=== PATIENT | female | born 1945 | race Caucasian/White ===

== ENCOUNTER → 2017-01-05 | Day surgery (SDC) | payer OTHER | END | disposition home or self-care (01) | LOC: FMAMMOTONE 09:41 | PROVIDERS: ATTEND Surgery Surgical Oncology | PROC: 0HBU3ZX Excision of Left Breast, Percutaneous Approach, Diagnostic (ICD-10-PCS; principal; 2017-01-05) | DX: R92.1 Mammographic calcification found on diagnostic imaging of breast (principal); Z85.3 Personal history of malignant neoplasm of breast; Z53.8 Procedure and treatment not carried out for other reasons | CPT/HCPCS: 19081 ==

== ENCOUNTER 2020-04-20 08:30 | Day surgery (SDC) | payer OTHER ==
[2020-04-16 14:17] VITALS: BMI 20.9
--- OUTSIDE RECORDS SUMMARY | 2020-04-16 18:17 | XMS ---
:1945 [facility] Providers Name Role Phone Donn Uriostegui Unavailable Unavailable Moody Donn Unavailable Unavailable Moody Donn Unavailable Unavailable Moody Donn Unavailable Unavailable Moody, Donn Unavailable Unavailable Moody, Donn Unavailable Unavailable Moody, Donn Unavailable Unavailable Moody, Donn Unavailable Unavailable Moody Donn Unavailable Unavailable Moody Donn Unavailable Unavailable Moody, Donn Unavailable Unavailable Moody, Donn Unavailable Unavailable Moody, Donn Unavailable Unavailable Moody, Donn Unavailable Unavailable Koyfman DO Unavailable Koyfman DO Unavailable Koyfman DO Unavailable Koyfman DO Unavailable Koyfman DO Unavailable Koyfman DO Unavailable Koyfman DO Unavailable Koyfman DO Unavailable Koyfman DO Unavailable Koyfman DO Unavailable Koyfman DO Unavailable Koyfman DO Unavailable Koyfman DO Unavailable Koyfman DO Unavailable KOYFMAN Unavailable Unavailable Bezdicek, MD Unavailable Unavailable Bezdicek, MD Unavailable Unavailable Bezdicek, MD Unavailable Unavailable Bezdicek, MD Unavailable Unavailable Bezdicek, MD Unavailable Unavailable Bezdicek, MD Unavailable Unavailable Bezdicek, MD Unavailable Unavailable Bezdicek, MD Unavailable Unavailable Bezdicek, MD Unavailable Unavailable Bezdicek, MD Unavailable Unavailable Bezdicek, MD Unavailable Unavailable Bezdicek, MD Unavailable Unavailable Bezdicek, MD Unavailable Unavailable Bezdicek, MD Unavailable Unavailable Bezdicek, MD Unavailable Unavailable Bezdicek, MD Unavailable Unavailable Bezdicek, MD Unavailable Unavailable Bezdicek, MD Unavailable Unavailable Bezdicek, MD Unavailable Unavailable Bezdicek, MD Unavailable Unavailable Bezdicek, MD Unavailable Unavailable Re-disclosure Warning The records that you are about to access may contain information from federally- assisted alcohol or drug abuse programs. If such information is present, then the following federally mandated warning applies: This information has been disclosed to you from records protected by federal confidentiality rules (42 CFR part 2). The federal rules prohibit you from making any further disclosure of this information unless further disclosure is expressly permitted by the written consent of the person to whom it pertains or as otherwise permitted by 42 CFR part 2. A general authorization for the release of medical or other information is NOT sufficient for this purpose. The Federal rules restrict any use of the information to criminally investigate or prosecute any alcohol or drug abuse patient.The records that you are about to access may contain highly sensitive health information, the redisclosure of which is protected by Article 27-F of the [facility] Public Health law. If you continue you may haveaccess to information: Regarding HIV / AIDS; Provided by facilities licensed or operated by the [facility] Office of Mental Health; or Provided by the [facility] Office for People With Developmental Disabilities. If such information is present, then the following [facility] mandated warning applies: This information has been disclosed to you from confidential records which are protected by state law. State law prohibits you from making any further disclosure of this information without the specific written consent of the person to whom it pertains, or as otherwise permitted by law. Any unauthorized further disclosure in violation of state law may result in a fine or mcfp sentence or both. A general authorization for the release of medical or other information is NOT sufficient authorization for further disclosure. Allergies and Adverse Reactions Type Description Substance Reaction Status Data Source(s ) NO KNOWN ALLERGIES NO KNOWN ALLERGIES [facility] ([facility] ) Drug Class NO KNOWN ALLERGIES NO KNOWN ALLERGIES [place] [facility] Drug allergy Drug allergy Drug allergy MEDENT ( [facility]) Encounters Encounter Providers Location Date Indications Data Source(s ) Outpatient 07/06/2020 03:00:00 [facility] [place] [facility] 07/06/2020 12:45:00 [facility] [place] [facility] Outpatient 04/27/2020 01:00:00 [facility] [place] [facility] Outpatient 04/09/2020 09:39:25 [facility] [place] AM [facility] Outpatient 04/02/2020 11:30:00 [facility] [place] AM EDT - 04/02/2020 [facility] 02:47:21 PM EDT Patient discharged. Outpatient 03/23/2020 07:15:00 AM NE X[facility]EN ([facility]) Outpatient 03/22/2020 07:33:00 AM NE XTGEN ([facility]) Outpatient Attender: Jaguar 03/10/2020 11:36:07 AM [facility] Kc MDAdmitter: EDT - 03/10/2020 [facility] Jaguar Kc MD 11:59:00 PM EDT Patient discharged. Outpatient 02/27/2020 01:30:00 PM EDT - [facility] 02/27/2020 04:10:57 PM EDT [facility] Patient discharged. Outpatient 06/26/2019 12:15:00 PM EST [facility] Out[facility] 04/11/2019 08:06:00 AM EDT NEXTGEN ([facility]) Outpatient 04/10/2019 08:24:00 AM EDT NEXTGEN ([facility]) Outpatient 03/28/2019 02:56:54 PM EDT [facility] [place] 03/28/2019 12:00:00 PM EDT - [facility] 03/28/2019 04:29:12 PM EDT [facility] Patient discharged. Outpatient 03/26/2019 01:30:00 [facility] [place] [facility] Attender: Onel 03/14/2019 03:30:54 Ne[facility] Koyfman DO PM EDT - 03/14/2019 11:59:00 PM EDT Attender: ONEL SungOUTH-XRAY 03/14/2019 11:08:10 [place] [place] AM EDT Outpatient 03/11/2019 02:15:00 [facility] [place] [facility] Outpatient Attender: [facility], 02/15/2019 11:30:00 ROXY goddard [facility] Outpatient 01/31/2019 12:42:10 [facility] PM [place] [facility] Outpatient 01/15/2019 01:45:00 [facility] PM EDT [place] [facility] Outpatient 01/15/2019 01:34:05 [facility] PM EDT - 01/15/2019 [facility] 04:39:53 PM EDT System In c Outpatient 01/15/2019 12:00:00 [facility] AM EDT [place] [facility] POB SDS-POB LAB 01/09/2019 12:32:50 [facility] PM EDT 01/09/2019 12:20:00 [employer] PM EDT - 01/09/2019 11:59:00 PM EDT Outpatient 12/21/2018 08:43:49 [facility] AM EDT [place] [facility] 07/26/2018 12:50:00 [employer] PM EST - 07/26/2018 11:59:00 PM EST Immunizations Vaccine Date Status Description Data Source(s) Influenza, high 05/29/2019 completed Influenza High 05/29/2019, [facility] dose seasonal 12:00:00 AM Dose Vaccine PF 05/22/2017, [facility] 05/05/2016 [facility] Zoster 05/21/2019 completed Zoster 05/21/2019, [facility] Recombinant 12:00:00 AM Recombinant 03/20/2019 [facility] Zoster 03/20/2019 completed Zoster 05/21/2019, [facility] Recombinant 12:00:00 AM Recombinant 03/20/2019 [facility] [employer] [facility] influenza, 05/04/2018 completed Influenza 05/04/2018 [facility] trivalent, 12:00:00 AM Vaccine (Tri) Ewa rity adjuvanted EDT Adjuvanted [facility] Influenza, high 05/22/2017 completed Influenza High 05/29/2019, [facility] dose seasonal 12:00:00 AM Dose Vaccine PF 05/22/2017, [place] EST 05/05/2016 [facility] Influenza, high 05/05/2016 completed Influenza High 05/29/2019, [facility] dose seasonal 12:00:00 AM Dose Vaccine PF 05/22/2017, [place] EDT 05/05/2016 [facility] New in 2012. 04/30/2015 completed Influenza 04/30/2015, [facility] IIV4 12:00:00 AM Vaccine (Quad) 05/13/2014 [facility] Pneumococcal 11/11/2014 completed Pneumococcal 11/11/2014 [place] [facility] conjugate PCV 13 12:00:00 AM Conjugate C harity EDT (PCV-13) [facility] New in 2012. 05/13/2014 completed Influenza 04/30/2015, [facility] IIV4 12:00:00 AM Vaccine (Quad) 05[facility]13/2014 [facility] Medications Medication Brand Start Product Dose Route Administrative Pharmacy [facility] Indications Reaction Description Data Name Date Form Instructions Instructions Source(s) Losartan losart 03/26/ 50 mg Oral active Take 1 Ta b Bon Potassium an 2019 by mouth Sec[facility] s 50 MG Oral (COZAA 12:00: daily. Ewa chaparro Tablet R) 50 00 AM Health losartan mg EDT [facility] Inc (COZAAR) 50 tablet mg tablet 60 ACTUAT Advair Inhala active Take 1 Puff [facility] Fluticasone Diskus 2019 {puff tion by Secou rs propionate 250-50 12:00: } inhalation [place] 0.25 mcg/do 00 AM two (2) Health MG/ACTUAT / se EDT times a day. [facility] salmeterol diskus 0.05 inhale MG/ACTUAT r Dry Powder Inhaler [Advair] Advair Diskus 250-50 mcg/dose diskus inhaler umeclidiniu umecli Inhala active Take 1 Puff Bon m 0.0625 dinium 2019 {puff tion by [facility] MG/ACTUAT (Incru 12:00: } inhalation [place] Dry Powder se 00 AM daily. Health Inhaler Ellipt EDT [facility] um[place]) m (Incruse 62.5 Ellipta) mcg/ac 62.5 tuatio mcg/actuati n on inhaler inhale r 30 ACTUAT flutic Inhala active Take 1 Puff [place] fluticasone asone 2019 {puff tion by Secour s furoate 0.2 furoat 12:00: } inhalatio n [place] MG/ACTUAT / e-darlin 00 AM daily. [facility] vilanterol nteroL EDT [facility] 0.025 (Breo MG/ACTUAT Ellipt Dry Powder a) Inhaler 200-25 [Breo] mcg/do fluticasone se furoate-thom inhale anteroL r (Breo Ellipta) 200-25 mcg/dose inhaler Ciprofloxac ciprof Oral active Take 1 Tab Bon in 500 MG loxaci 2020 mg by mouth two [facility] Oral Tablet n HCl 12:00: (2) times a [place] ciprofloxac (CIPRO 00 AM day. Healt h in HCl ) 500 EST [facility] Inc (CIPRO) 500 mg mg tablet tablet Metronidazo metroN Oral active Take 1 Tab Bon le 500 MG IDAZOL 2020 mg by mouth Seco urs Oral Tablet E 12:00: three (3) C harity metroNIDAZO (FLAGY 00 AM times elva y. Health LE (FLAGYL) L) 500 EST [facility] 500 mg mg tablet tablet Ondansetron ondans 09/17/ 4 mg Oral active Take 1 Tab Bon 4 MG Oral etron 2020 by mouth Secou rs Tablet hcl 12:00: every eight [place] ity ondansetron (ZOFRA 00 AM (8) hours as Health hcl N) 4 EST needed for System In c (ZOFRAN) 4 mg Nausea. mg tablet tablet Ondansetron ondans 06/26/ 4 mg Oral active Take 1 Tab Bon 4 MG Oral etron 2019 by mouth Secou rs Tablet hcl 12:00: every eight [place] ity ondansetron (ZOFRA 00 AM (8) hours as Health hcl N) 4 EST needed for System In c (ZOFRAN) 4 mg Nausea. mg tablet tablet Ciprofloxac ciprof Oral active Take 1 Tab Bon in 500 MG loxaci 2019 mg by mouth two [facility] Oral Tablet n HCl 12:00: (2) times a [place] ciprofloxac (CIPRO 00 AM day. Healt h in HCl ) 500 EST System Inc (CIPRO) 500 mg mg tablet tablet Metronidazo metroN Oral active Take 1 Tab Bon le 500 MG IDAZOL 2019 mg by mouth Seco urs Oral Tablet E 12:00: three (3) C harity metroNIDAZO (FLAGY 00 AM times elva y. Health LE (FLAGYL) L) 500 EST [facility] 500 mg mg tablet tablet Nystatin nystat Oral active Take 5 mL by Bon [id number] in 2018 0 U mouth four [facility] UNT/ML Oral (MYCOS 12:00: (4) times [place] Suspension TATIN) 00 AM daily for 1 4 Health nystatin 100,00 EST days. swish Sy [facility] Inc (MYCOSTATIN 0 and spit ) 100,000 unit/m unit/mL L suspension suspen marianne 30 ACTUAT flutic Inhala active Take 1 Puff [place] fluticasone asone 2018 {puff tion by Secour s furoate 0.2 furoat 12:00: } inhalatio n [place] MG/ACTUAT / e-darlin 00 AM [facility]. [facility] vilanterol nterol EDT [facility] 0.025 (BREO MG/ACTUAT ELLIPT Dry Powder A) Inhaler 200-25 fluticasone mcg/do furoate-thom se anterol inhale (BREO r ELLIPTA) 200-25 mcg/dose inhaler 7 ACTUAT umecli Inhala active Take 1 P uff Bon umeclidiniu dinium 2018 {puff tion by Secou rs m 0.0625 (INCRU 12:00: } inhalation C harity MG/ACTUAT SE 00 AM daily. Health Dry Powder ELLIPT EDT [facility] Inhaler A) umeclidiniu 62.5 m (INCRUSE mcg/ac ELLIPTA) tuatio 62.5 n mcg/actuati inhale on inhaler r Losartan losart 03/19/ Tablet 50.0 Oral Nuvan ce Potassium an 50 2019 mg 50 m g, Oral, Daily, # 90 tab, 3 Refill(s), Pharmacy: [facility], 50 mg Oral Daily Health - 50 MG Oral mg 03:33: [place] Tablet oral 00 PM Brothers losartan 50 tablet EDT Medica l mg oral Center tablet Prednisone Predni 02/15/ active MED ENT 50 MG Oral sone 2018 ([facility] Tablet 12:00: Walk In 00 AM Medical EDT Center) Tobramycin Tobrex 02/15/ active MED ENT 3 MG/ML 2018 ([facility] 12:00: Walk In Solution 00 AM Medical [Tobrex] EDT Center) 30 ACTUAT flutic Inhala active Take 1 Puff [place] fluticasone asone 2018 {puff tion by Secour s furoate 0.2 furoat 12:00: } inhalatio n [place] MG/ACTUAT / e-darlin 00 AM daily. Hea lt vilanterol nterol EDT [facility] 0.025 (BREO MG/ACTUAT ELLIPT Dry Powder A) Inhaler 200-25 fluticasone mcg/do furoate-thom se anterol inhale (BREO r ELLIPTA) 200-25 mcg/dose inhaler Prednisone predni 01/15/ 40 mg Oral active Take 40 mg Bon 20 MG Oral SONE 2018 by mouth Secou rs Tablet (DELTA 12:00: daily (with Ch arity predniSONE SONE) 00 AM breakfast). Health (DELTASONE) 20 mg EDT [facility] 20 mg tablet tablet 7 ACTUAT umecli Inhala active Take 1 P uff Bon umeclidiniu dinium 2018 {puff tion by Secou rs m 0.0625 (INCRU 12:00: } inhalation C harity MG/ACTUAT SE 00 AM daily. Health Dry Powder ELLIPT EDT [facility] Inhaler A) umeclidiniu 62.5 m (INCRUSE mcg/ac ELLIPTA) tuatio 62.5 n mcg/actuati inhale on inhaler r Cefuroxime cefURO 07/26/ 500 Oral aborted Take 1 Tab Bon 500 MG Oral Jordyn 2019 mg by mouth two [facility] Tablet (CEFTI 12:00: (2) times a Ch arity cefUROXime N) 500 00 AM day. Health (CEFTIN) mg EST [facility] 500 mg tablet tablet Ciprofloxac ciprof Oral aborted Take 2 Tabs Bon in 250 MG loxaci 2018 mg by mouth Seco urs Oral Tablet n HCl 12:00: every twel ve [place] ciprofloxac (CIPRO 00 AM (12) hours . Health in HCl ) 250 EDT [facility] Inc (CIPRO) 250 mg mg tablet tablet Ondansetron ondans 05/04/ 4 mg Oral aborted Take 1 Tab Bon 4 MG Oral etron 2018 by mouth Secou rs Tablet hcl 12:00: every eight [place] ity ondansetron (ZOFRA 00 AM (8) hours as Health hcl N) 4 EDT needed for System In c (ZOFRAN) 4 mg Nausea. mg tablet tablet Ciprofloxac ciprof Oral aborted Take 1 Tab Bon in 250 MG loxaci 2018 mg by mouth Seco urs Oral Tablet n HCl 12:00: every twel ve [place] ciprofloxac (CIPRO 00 AM (12) hours . Health in HCl ) 250 EDT System Inc (CIPRO) 250 mg mg tablet tablet Metronidazo metroN Oral aborted Take 1 Tab Bon le 500 MG IDAZOL 2018 mg by mouth Seco urs Oral Tablet E 12:00: three (3) C harity metroNIDAZO (FLAGY 00 AM times elva y. Health LE (FLAGYL) L) 500 EDT [facility] 500 mg mg tablet tablet Acyclovir acyclo 03/26/ Topica aborted Apply to Bon 50 MG/ML vir 2018 l affected [facility] Topical (ZOVIR 12:00: area five Ewa rity Cream AX) 5 00 AM (5) times Health acyclovir % EDT daily. System I nc (ZOVIRAX) 5 topica % topical l cream cream Cyclobenzap cyclob 02/16/ 5 mg Oral aborted Take 1 Tab Bon rine enzapr 2015 by mouth two Secou rs hydrochlori ine 12:00: (2) times a [place] de 5 MG (FLEXE 00 AM day. Health Oral Tablet RIL) 5 EDT System Inc cyclobenzap mg rine tablet (FLEXERIL) 5 mg tablet Acyclovir acyclo 11/18/ Topica active Apply to Bon 50 MG/ML vir 2016 l affected [facility] Topical (ZOVIR 12:00: area five Ewa rity Cream AX) 5 00 AM (5) times Health acyclovir % EDT daily. System I nc (ZOVIRAX) 5 topica % topical l cream cream Calcium active MEDENT 1200 ([facility]) BIOTIN 5000 Oral complet Take by Anjana cervantes PO ed mouth. Health Take by mouth. Calcium calcium 600 mg Oral completed Take 60 0 mg [place] Carbonate 1500 carbonate by mo ut 2 Health MG Oral Tablet (OS-VERITO) 600 (t wo) times calcium MG TABS daily with carbonate meals. (OS-VERITO) 600 MG TABS Take 600 mg by mouth 2 (two) times daily with meals. Cholecalciferol Cholecalciferol Oral completed Take by Willam 2000 UNT Oral (VITAMIN D) 2000 mouth. Health Tablet UNITS TABS Cholecalciferol (VITAMIN D) 2000 UNITS TABS Take by mouth. valsartan 80 MG valsartan 80 mg Oral completed Take 80 mg [place] Oral Tablet (DIOVAN) 80 MG by mouth Health valsartan tablet daily. (DIOVAN) 80 MG tablet Take 80 mg by mouth daily. Multiple Vitamin One-Daily 1 {tbl} Oral completed Take 1 [place] (MULTIVITAMIN) Multi tablet by [facility] tablet Vitamins Po mouth Tabs daily. Take 1 tablet by mouth daily. Losartan Potassium losartan Oral active Take by Remberto 50 MG Oral Tablet (COZAAR) 50 mouth Secours losartan (COZAAR) mg tablet da la. [place] 50 mg tablet Health System [employer] BIOFLAV,LEMON/VIT Oral active Take by Remberto BCOMP&C mouth two [facility] (LIPOFLAVONOID PO) (2) ti mes [place] a day. [employer] [facility] Cholecalciferol Cholecalcife 2000 U Oral aborted Take Remberto 1000 UNT Oral rol, Vitamin 2,0 00 [facility] Capsule D3, (VITAMIN Units by [facility] Cholecalciferol, D3) 1,000 kaya th Health Vitamin D3, unit cap daily. [employer] (VITAMIN D3) 1,000 unit cap [id number] Oral active T tru by Remberto open-lutein mouth [facility] (CENTRUM SILVER) daily. C harity 0.4-300-250 Health mg-mcg-mcg tab Syste m Inc Biotin 2.5 MG Oral Biotin 2,500 5000 ug Oral active Take Bon Capsule Biotin mcg cap 5,000 m cg [facility] 2,500 mcg cap by mouth Ch arity daily. [employer] Vitamins-Lipotropic Oral completed Take by Willam haro (LIPOFLAVONOID mouth. H ealth PO) Take by mouth. calcium carbonate 500 mg Oral active Take by mouth [facility] calcium (1,250 mg) tab da la. iPling 500 mg, ergocalciferol Sandag (vitamin d2) 400 unit tab 200 Units Multivitamins active MEDE NT ([facility]) Losartan Potassium active MEDENT ([facility]) Insurance Providers Payer name Policy type Policy ID Covered Covered alliance party's Policy P fantasma / Coverage alliance party ID relationship to Martínez [employer] ormation type martínez PGBA, [id number] SP [id number] LLC/ MEDICARE [id number] SP [id number] [place] [id number] [place] [id number] Self [id number] MCARE [id number] Self [id number] Spouse [id number] MEDICARE [id number] Self [id number] [id number] [place] [id number] Problems, Conditions, and Diagnoses Code Display Name Description Problem Type Effective Data Dates Source(s) R91.1 Lung nodule Lung nodule [id number] 12/22/2016 [facility] 12:00:00 AM [employer] R91.1 Lung nodule Lung nodule Condition 04/27/2016 [place] [facility]alt [facility] 12:00:00 AM EDT N28.1 Renal cyst Renal cyst [id number] 04/15/2016 [facility] 12:00:00 AM [employer] Z85.3 History of breast History of breast [id number] 04/15/2016 [facility] cancer cancer 12:00:00 AM Ketto R05 Cough Cough [id number] 04/01/2016 [facility] 12:00:00 AM [employer] I10 Essential Essential [id number] 11/11/2014 [facility] hypertension hypertension 12:00:00 AM [place] [employer] R06.00 Dyspnea Dyspnea [id number] 11/11/2014 [facility] 12:00:00 AM [place] [employer] 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 11:27:00 AM [place] [employer] M79.601 Pain in right arm Pain in right arm Diagnosis 03/10/2020 [place] 11:36:00 AM Health - EDT [facility] M79.601 Pain in right arm Pain in right arm Diagnosis 02/27/2020 [facility] 04:10:51 PM [place] [employer] K57.90 Diverticulosis of Diverticulosis of Diagnosis 06/26/2019 [facility] intestine, part intestine, part 12:11:45 PM Ewa rity unspecified, unspecified, EST Health Sys tem without perforation without perforation Inc or abscess without or abscess without bleeding bleeding R05 Cough Cough Diagnosis 03/28/2019 [facility] 12:02:31 PM [place] [employer] R13.12 Dysphagia, Dysphagia, Diagnosis 03/14/2019 [facility] oropharyngeal phase oropharyngeal phase 11:08:1 0 AM EDT R13.10 Dysphagia, Dysphagia, Diagnosis 01/15/2019 [facility] unspecified unspecified 01:34:05 PM [place] [employer] R91.8 Other nonspecific Other nonspecific Diagnosis 01/15/2019 [facility] abnormal finding of abnormal finding of 01:34:0 5 PM [place] lung field lung field [facility] [employer] I10 Essential (primary) Essential (primary) Diagnosis 019 [facility] hypertension hypertension 12:32:50 PM EDT Surgeries/Procedures Procedure Description Date Indications Data Source(s) SCREENING TEST VISUAL 02/15/2019 MEDENT ([facility] 12:00:00 AM EDT Walk In [facility] BILAT Center) MANUAL MANUAL Routine 01/09/2019 Hypertension 01/09/2019 Vitamin D [place] DIFFERENTIAL DIFFERENTIAL 12:41 PM Hyperlipidemia 12:41:00 PM deficiencyHyperlipidemiaHyperten [facility] ED[facility] Vitamin D deficiency EDT - 01/09/2019 12:41:00 PM EDT Vitamin D deficiency Hyperlipidemia Hypertension LIPID LIPID Routine 01/09/2019 Hypertension 01/09/2019 Vitamin D [place] PROFILE PROFILE 12:41 PM Hyperlipidemia 12:41:00 PM deficiencyHyperlipidemiaHyNewsvine WITH WITH EDT Vitamin D deficiency EDT - REFLEX REFLEX 01/09/2019 TO TO 12:41:00 PM DIRECT DIRECT EDT LDL LDL Vitamin D deficiency Hyperlipidemia Hypertension COMPREHENSIVE COMPREHENSIVE Routine 01/09/2019 Hypertension 01/09/2019 Vitamin D [place] METABOLIC METABOLIC 12:41 PM Hyperlipidemia 12:41:00 PM deficiencyHyperlipidemiaHypertneedmade PANEL PANEL EDT Vitamin D deficiency EDT - 01/09/2019 12:41:00 PM EDT Vitamin D deficiency Hyperlipidemia Hypertension CBC CBC Routine 01/09/2019 Hypertension 01/09/2019 Vitamin D [place] DIFFERENTIAL DIFFERENTIAL 12:41 PM Hyperlipidemia 12:41:00 PM deficiencyHyperlipidemiaHyNewsvine EDT Vitamin D deficiency EDT - 01/09/2019 12:41:00 PM EDT Vitamin D deficiency Hyperlipidemia Hypertension VITAMIN VITAMIN Routine 01/09/2019 Hypertension 01/09/2019 Vitamin D [place] D 25 D 25 12:41 PM Hyperlipidemia 12:41:00 PM deficiencyHyperlipidemiaCliqset HYDROXY HYDROXY EDT Vitamin D deficiency EDT - 01/09/2019 12:41:00 PM EDT Vitamin D deficiency Hyperlipidemia Hypertension XR CHEST XR CHEST Routine 07/26/2018 Hemoptysis 07/26/2018 Hemop tysis [place] 2 VIEWS 2 VIEWS 1:05 PM EST 01:05:51 PM Health FRONT PA FRONT PA EST - AND LAT AND LAT 07/26/2018 01:05:51 PM EST Hemoptysis Results ID Date Data Source [id number] 03/10/2020 01:45:[address] [facility] Patient Name: TAB JINMRN : [id number] General DiagnosticACCESSION EXAM DATE/TIME PROCEDURE ORDERING PROVIDER [id number] 03/10/2020 12:02 EDT XR Humerus 2+ Views Bakari Kc (Verifie d) RTReason For Exam(XR Humerus 2+ Views RT ) Pain in right armReportPROCEDURE: Radiograph Humerus Minimum 2 Views Right CLINICAL HISTORY: Pain Mid Shaft of Right Humerus since Shingles Shot 05/2019SCRIP T INFORMATION:COMPARISON: None.TECHNIQUE:Two or more radiographic views of the right humerus were performed.FINDINGS:Overall bony mineralization is within normal limits.T here is no evidence for acute fracture or dislocation.The joint spaces are preserv ed.The soft tissues are unremarkable.IMPRESSION:Normal right hum erus radiographs.Thank you for allowing [facility] to part icipate in the evaluation of this patient. Final Dictated: Will Cass cristobal MD S003/10/20 13:44Signed: Cass Montoya MD 03/10/20 13:45 Transcribed by: JHOANA Name Value Range Interpretation Code Description Data Analisa rce(s) Supporting Document(s ) ID Date Data Source [id number] 03/15/2019 08:40:15 AM EDT [facility] ORIGINAL: MonMar 15, 2019 8:40 AM by Rajan Martin MDEXAMINATION:XR VIDEO SPEECH EVALUATIONHISTORY:dysphagia caroline p haseCOMPARISON:None availableTECHNIQUE:Video speech study was performed. The patient was observed while swallowing barium mixed withvarious consistencies of liquid, luci i-solid and solids. Speech pathology was in attendance.FLUOROSCOPIC TIME:Fluoroscopy time was 1 minutes.Dose: 1.95 mGyFINDINGS:The oropharyngeal component was normal. A normal bolus was formed. There was no significant delayin deglutition. There was no laryngeal penetration or aspiration. Posterior indentation of th eesophagus secondary to prominent anterior endplate disc osteophyte formation at C5 -6 and C6-7 wasobserved throughout the examination.IMPRESSION:Swallow study as above. Please refer to the almond sorter speech pathology report for details. Name Value Range Interpretation Code Description Data Analisa rce(s) Supporting Document(s ) ID Date Data Source [id number] 03/14/2019 03:30:54 PM EDT [facility] Name Value Range Interpretation Description Data Sup porting Code Source(s) Document(s ) Human Factors Advisor Lead [facility] Interface Message Text Modified Barium Swallow Study / Video Sw allow - 03/14/19 4769 Inpatient/Outpatient Inpatient Ordering Physician Se ignacio Richardson MD Radiologist Rajan Phillips MD Date of Order 02/15/19 Date of Evaluatio n 03/14/19 Current Complaint Pt c/o frequent "choking" episodes with coughing, feelin glike she cannot catch her breath. Per report, this occurs with her own salivaa s well as food/liquid trials. Current Diet Regular/Thin Allergies + Severe Divertic ulitis reported: must avoid nuts, popcorn, seeds,red and black pepper. Cognitive/Co mmunication status WFL Significant Past Medical History Per pt report and MD not es: Breast CA,Cataracts, GERD, HTN, Tinnitus, Diverticulitis. Procedure Imag es obtained of patient while administered barium infusedconsistencies, and viewed by radiologist. Images saved in Synapse. Views Assessed LateralReason for Referra lPatient was referred for a Videoswallow to assess the efficiency of his/herswallow function, rule out aspirationand make recommendations regarding safe dietary c onsistencies, effectivecompensatory strategies, and safeeating environment.O ral Peripheral Examination - 03/14/19 1458 Dentition Natural dentition Oral Motor W FL Re: lingual, labial strength/ROM, but Hyposensitive gagresponse. Baseline Voca l Quality Normal Speech Intelligibility Within functional limitsConsistencies As sessed - 03/14/19 1459 Consistencies Assessed Thin liquids, Puree, Mechanical Soft, So ft and RegularsolidsStages - 03/14/19 1508 Oral Prep Stage WFL: Good acceptance, o ral control, containment Oral Stage Efficient mastication, bolus cohesion, and timely transit of bothliquid and solids Pharyngeal Stage WFL: Pt demonstrated a timely swa llow initiation with goodHyo-Laryngeal excursion/airway protection. No Penetra tion/Aspiration notedbefore, during, or after any swallow. Min residual noted in Vall eculae attimes, but this was easily cleared with secondary swallows and/or an altern atingliquid sip. Esophageal Screen Not formally assessed this study, but appear ed to clearvisualized UES, proximal Esophagus Compensatory Techniques Attempted Second elizabeth swallows, alternating sips ofliquidPenetration Aspiration Scale - 0 03/14/19 1515 Thin Liquid Does not enter airway. Dysphagia 1 - Pureed Does not en ter airway. Dysphagia 2 - Mechanical soft Does not enter airway. Dysphagia 3 - Sof t Does not enter airway. Regular Solids Does not enter airway. Additional CommentsSLP discussed study with pt and her spouse. + Education Re: study results,general prec autions, compensatory strategies to maximize safety at meals(Pt/spouse acknowledged t hat pt tends to eat very rapidly and speak withfood/liquid in her mouth). VIDEO PRODUCTION COORDINATOR prov ied written recommendations fordiet/carryover precautionsDiagnosis/Prognosis - 9 1523 Dysphagia Diagnosis Within Functional Limits Impression Overall, pt is demonst rating a grossly functional Oropharyngealswallow. There was no Pene tration/Aspiration before, during, or after anyswallow. Aspiration Risk Mild Prognos is/BarriersRecommend pt f/u with PCP--? possible difficulty with anxiety, manage ment ofstress/illnesses.Recommendations/Treat ment - 03/14/19 1526 Referrals Comment Not recommended Solid Consistency Regular Li quid Consistency Thin Liquid Administration Via Cup;Straw Medication Administration PO Supervision CloseEducation/Comment - 03/14/19 1526 Education/Instructions Pro vided for pt/spouse--written precautions providedSignature: Consuelo Verdin, MS, CC C-VIDEO PRODUCTION COORDINATOR ID Date Data Source [id number] 02/15/2019 11:48:00 AM EDT [facility] Name Value Range Interpretation Description Data Sup porting Code Source(s) Document(s ) Laboratory <pending> MEDENT test finding ([facility]) ID Date Data Source [id number] 01/09/2019 02:27:00 PM EDT [place] [facility] Name Value Range Interpretation Description Data Sup porting Code Source(s) Document(s ) VITAMIN D 40.3 30.0-100. [facility] ng/mL 0 ID Date Data Source [id number] 01/09/2019 02:06:00 PM EDT [facility] Name Value Range Interpretation Description Data Sup porting Code Source(s) Document(s ) NEUTROPHILS - 42 % 36-66 [place] [facility] (DIFF) Health LYMPHOCYTES - 49 % 24-44 Above high normal [place] [facility] (DIFF) [facility] MONOCYTES - MAN 4 % 3-7 [place] (DIFF) Health EOSINOPHILS - 2 % 0-5 [place] [facility] (DIFF) Health BASOPHILS - MAN 1 % 0-1 [place] (DIFF) Health ATYPICAL 2 % [place] LYMPHOCYTE - Health MAN (DIFF) TOTAL COUNTED 100 [facility] ANC MAN DIFF 3444 1,500-8, [place] Cells/mm 000 Health 3 ANISOCYTOSIS 1+ [facility] ID Date Data Source [id number] 01/09/2019 02:05:00 PM EDT [facility] Name Value Range Interpretation Description Data Sup porting Code Source(s) Document(s ) TRIGLYCERIDES 73 mg/dL <=150 [facility] CHOLESTEROL 162 <=200 [place] mg/dL Health LDL CHOLESTEROL 74 mg/dL 0-160 [place] CALCULATED [facility] HDL CHOLESTEROL 73 mg/dL >=60 [facility] ID Date Data Source [id number] 01/09/2019 02:05:00 PM EDT [facility] Name Value Range Interpretation Description Data Sup porting Code Source(s) Document(s ) SODIUM 140 136-144 [place] mEq/L [facility] POTASSIUM 4.2 3.5-5.1 [place] mEq/L Health CHLORIDE 105 101-111 [place] mEq/L Health CO2 28 mEq/L 22-32 [facility] BLOOD UREA 14 mg/dL 8-20 [place] NITROGEN [facility] GLUCOSE 77 mg/dL 70-110 [facility] CALCIUM 9.5 8.5-10.1 [place] mg/dL [facility] CREATININE 0.73 0.55-1.0 [place] mg/dL 2 Health BILIRUBIN 0.8 0.3-1.2 [place] TOTAL mg/dL [facility] ALBUMIN 4.1 g/dL 3.5-4.8 [facility] TOTAL PROTEIN 6.9 g/dL 6.4-8.3 [facility] ALKALINE 69 U/L 45-117 [place] PHOSPHATASE [facility] AST (SGOT) 30 U/L 15-41 [facility] ALT (SGPT) 21 U/L 14-54 [facility] ANION GAP 7 mEq/L 8-17 Below low normal [facility] EGFR >=60.0 [place] DUTCH [facility] EGFR NON >=60.0 [place] [facility] DUTCH ID Date Data Source [id number] 01/09/2019 01:58:00 PM EDT [facility] Name Value Range Interpretation Description Data Sup porting Code Source(s) Document(s ) WBC 8.2 3.9-10.7 [place] 10^3/L Health RBC 5.33 4.00-5.1 Above high normal [place] 10^6/L 0 Health HEMOGLOBIN 16.0 12.0-14. Above high normal [place] g/dL 7 Health HEMATOCRIT 48.6 % 37.1-45. Above high normal [place] 4 Health MCV 91.2 fL 81.9-99. [place] 9 [facility] MCH 30.0 pg 26.2-32. [place] 7 Health MCHC 32.9 30.9-33. [place] g/dL 8 Health RDW 12.4 % 11.5-15. [place] 0 [facility] PLATELET COUNT 117 126-373 Below low normal [place] 10^3/L Health ID Date Data Source [id number] 07/26/2018 01:11:27 PM EST [facility] ORIGINAL: MonJul 26, 2018 1:11 PM by Barrington Dejesus MDEXAMINATION:XR CHEST 2 VIEWS FRONT PA AND LATHISTORY:hemoptysis COMPARISON:12/16/2016TECHNIQUE:CHEST X-RAY-two viewsFINDINGS:There is a bilob ed left lower lobe mass lesion.There are noother obvious new masses, nodules, or infiltrates.The heart size and mediastinum are normal.IMPRESSION:Stable appearing l eft lower lobe mass lesion Name Value Range Interpretation Code Description Data Analisa rce(s) Supporting Document(s ) Procedure Social History Code Duration Value Status Description Data Source(s ) Alcohol intake 04/02/2020 Current drinker completed Current drinker [facility] 12:00:00 AM of alcohol of alcohol To8to EDT (finding) (finding) [facility] Tobacco use and 04/02/2020 Never used completed Never used [facility] exposure 12:00:00 AM [employer] [facility] Cigarette 04/02/2020 UNK completed [facility] pack-years 12:00:00 AM [employer] [facility] Cigarettes 04/02/2020 UNK completed [facility] smoked current 12:00:00 AM Vino Volo ealth (pack per day) - EDT System [facility] nc Reported Smoking 04/02/2020 Former smoker completed Former smoker [facility] 12:00:00 AM To8to EDT [facility] Alcohol intake 06/26/2019 Current drinker completed Current drinker [facility] 12:00:00 AM of alcohol of alcohol To8to EST (finding) (finding) [facility] Cigarette 06/26/2019 UNK completed [facility] pack-years 12:00:00 AM To8to EST [facility] Cigarettes 06/26/2019 UNK completed [facility] smoked current 12:00:00 AM Vino [employer] ealth (pack per day) - EST System I nc Reported Smoking 06/26/2019 Former smoker completed Former smoker [facility] 12:00:00 AM [employer] [facility] Cigarette 01/15/2019 UNK completed [facility] pack-years 12:00:00 AM [employer] [facility] Cigarettes 01/15/2019 UNK completed [facility] smoked current 12:00:00 AM Vino Volo ealtOrqis Medical (pack per day) - EDT System I nc Reported Smoking 01/15/2019 Former smoker completed Former smoker [facility] 12:00:00 AM In[employer] [facility] Cigarette 07/26/2018 UNK completed [facility] pack-years 12:00:00 AM [employer] [facility] Cigarettes 07/26/2018 UNK completed [facility] smoked current 12:00:00 AM Jike Xueyuan (pack per day) - EST System I nc Reported Smoking 07/26/2018 Former smoker completed Former smoker [facility] 12:00:00 AM [employer] [facility] Cigarette 07/18/2018 UNK completed [facility] pack-years 12:00:00 AM [employer] [facility] Cigarettes 07/18/2018 UNK completed [facility] smoked current 12:00:00 AM Jike Xueyuan (pack per day) - EST System I nc Reported Smoking 07/18/2018 Former smoker completed Former smoker [facility] 12:00:00 AM [employer] System [employer] Tobacco smoking 04/27/2016 Former smoker [facility] 12:00:00 AM EDT 11/11/1984 Cigarette completed Cigarette Smoker [facility] 12:00:00 AM Smoker [employer] [facility] 11/11/1984 Current smoker completed Current smoker [facility] 12:00:00 AM [employer] [facility] Smoking completed [facility] 11/11/1984 Cigarette completed Cigarette Smoker [facility] 12:00:00 AM Smoker [employer] [facility] 11/11/1984 Current smoker completed Current smoker [facility] 12:00:00 AM [employer] [facility] Sex assigned at Not on file Not on file [facility] Recreational Drug Denies Drug Use completed Denies Drug U se MEDENT Use ([facility]) Patient is a completed Patient is a MEDENT former smoker former smoker ([facility]) Alcohol intake Yes completed [place] [employer] [facility] 11/11/1984 Cigarette completed Cigarette [facility] 12:00:00 Smoker Smoker [place] [employer] [facility] 11/11/1984 Current smoker completed Current smoker [facility] 12:00:00 [place] [employer] [facility] Sex assigned at Not on file Not on file [facility] 11/11/1984 12:00:00 Cigarette Smoker completed Cigarette Smoker [facility] AM EST [employer] [facility] 11/11/1984 12:00:00 Current smoker completed [facility]ok er [facility] 11/11/1984 12:00:00 Cigarette Smoker completed Cigarette Smoker [facility] AM EST [employer] [facility] 11/11/1984 12:00:00 Current smoker completed Current smok er [facility] AM EST [employer] [facility] Sex assigned at Not on file Not on file [place] [employer] Vital Signs ID Date Data Source UNK Name Value Range Interpretation Code Description Data Source(s) Oxygen saturation 97 % 97 % [facility] in Arterial blood iPling by Pulse oximetry [facility] Body mass index 21.80 kg/m2 21.80 kg/m2 [facility] (BMI) [Ratio] [employer]Menu [facility] Body weight 57.607 kg 57.607 kg [facility] [employer] [facility] Body height 162.6 cm 162.6 cm [employer]edo [facility] Body temperature 36.33 Bertha 36.33 Bertha [facility] [employer] [facility] Heart rate 71 /min 71 /min Bon Ipsat Therapiesours [employer] Inc Diastolic blood 72 mm[Hg] 72 mm[Hg] [facility] pressure [employer] [facility] Systolic blood 124 mm[Hg] 124 mm[Hg] [place] pressure [employer] [facility] Oxygen saturation 98 % 98 % [facility] in Arterial blood [email or web address] by Pulse oximetry [facility] Body mass index 20.77 kg/m2 20.77 kg/m2 [facility] (BMI) [Ratio] [employer]ell [employer]Menu [facility] Body weight 54.885 kg 54.885 kg [facility] Therapiesours [employer] [facility] Body height 162.6 cm 162.6 cm [employer] Heart rate 62 /min 62 /min [facility] [employer] [facility] Diastolic blood 62 mm[Hg] 62 mm[Hg] [facility] pressure [employer] Inc Systolic blood 118 mm[Hg] 118 mm[Hg] [place] pressure [employer] Inc Body mass index 21.1 kg/m2 21.1 kg/m2 MEDENT (BMI) [Ratio] ([facility]) Body weight 55.793 kg 55.793 kg MED[facility] ([facility]) Body weight 123.00 123.00 [lb_av] MEDENT [lb_av] ([facility]) Body height 64 [in_i] 64 [in_i] MED[facility] ([facility]) 5'4" Respiratory rate 13 /min 13 /min MED[facility] ( [facility] ) Heart rate 71 /min 71 /min MEDENT ([facility] ) Oxygen saturation in Arterial 96 % 96 % MEDENT ([facility] blood by Pulse oximetry [facility]) Body temperature 98.2 [degF] 98.2 [degF] MEDENT ([facility] ) Diastolic blood pressure 78 mm[Hg] 78 mm[Hg] MED[facility] ([facility] ) Systolic blood pressure 130 mm[Hg] 130 mm[Hg] [facility] ([facility] ) Oxygen saturation in Arterial 96 % 96 % Contraqer blood by Pulse oximetry S edupristine Body mass index (BMI) [Ratio] 21.90 kg/m2 21.90 kg/m2 Bon [employer] Body weight 57.879 kg 57.879 kg [facility] C [employer] Inc Body height 162.6 cm 162.6 cm Bon [employer]Demand Interpreting C [employer] Inc Heart rate 71 /min 71 /min [facility] [employer] Inc Diastolic blood pressure 72 mm[Hg] 72 mm[Hg] Bon [employer] Systolic blood pressure 116 mm[Hg] 116 mm[Hg] B on [employer] Oxygen saturation in Arterial 95 % 95 % Bon Widespace blood by Pulse oximetry S [employer] Inc Body mass index (BMI) [Ratio] 21.68 kg/m2 21.68 kg/m2 Bon [employer] Body weight Measured 57.289 kg 57.289 kg Bon [employer] Body height 162.6 cm 162.6 cm [facility] Inc Heart rate 85 /min 85 /min [facility] Diastolic blood pressure 70 mm[Hg] 70 mm[Hg] Bon [employer] Systolic blood pressure 126 mm[Hg] 126 mm[Hg] B on [employer] [facility] Oxygen saturation in Arterial 98 % 98 % Bon [facility] blood by Pulse oximetry S ystem Inc Respiratory rate 12 /min 12 /min Bon Heenao urs [employer] [facility] Heart rate 72 /min 72 /min [facility] [facility] Diastolic blood pressure 78 mm[Hg] 78 mm[Hg] Bon [employer] [facility] Systolic blood pressure 122 mm[Hg] 122 mm[Hg] B on [employer] Patient Treatment Plan of Care Planned Activity Planned Date Details Description Data Source (s) No data available for this N [facility] Losartan Potassium 50 MG 03/26/2020 [facility] [place] Oral Tablet 12:00:00 AM EDT Health Syste m Inc 60 ACTUAT Fluticasone 11/08/2019 [facility] [place] propionate 0.25 MG/ACTUAT / 12:00:00 AM ED [facility] salmeterol 0.05 MG/ACTUAT Dry Powder Inhaler [Advair] umeclidinium 0.0625 11/04/2019 [facility] [place] MG/ACTUAT Dry Powder 12:00:00 AM EDT [facility] Inhaler 30 ACTUAT fluticasone 11/04/2019 [facility] [place] furoate 0.2 MG/ACTUAT / 12:00:00 AM EDT ealt System Inc vilanterol 0.025 MG/ACTUAT Dry Powder Inhaler [Breo] Ondansetron 4 MG Oral 09/18/2019 [facility] [place] Tablet 12:00:00 AM EST [facility] Inc Metronidazole 500 MG Oral 09/18/2019 [facility] [place] Tablet 12:00:00 AM EST [facility] Inc Ciprofloxacin 500 MG Oral 09/18/2019 [facility] [place] Tablet 12:00:00 AM EST [facility] Inc Ondansetron 4 MG Oral 06/26/2019 [facility] [place] Tablet 12:00:00 AM EST [facility] Metronidazole 500 MG Oral 06/26/2019 [facility] [place] Tablet 12:00:00 AM EST [facility] Ciprofloxacin 500 MG Oral 06/26/2019 [facility] [place] Tablet 12:00:00 AM EST [facility] Inc Nystatin [id number] UNT/ML Oral 06/19/2019 [facility] [place] Suspension 12:00:00 AM EST [facility] Inc 7 ACTUAT umeclidinium 03/28/2019 [facility] [place] 0.0625 MG/ACTUAT Dry Powder 12:00:00 AM EDT [facility] System [facility] Inhaler 30 ACTUAT fluticasone 03/28/2019 [facility] [place] furoate 0.2 MG/ACTUAT / 12:00:00 AM EDT H ealth System Inc vilanterol 0.025 MG/ACTUAT Dry Powder Inhaler Losartan Potassium 50 MG 03/19/2019 [facility] - Oral Tablet 03:33:00 PM EDT [facility] Prednisone 20 MG Oral 01/15/2019 [facility] [place] Tablet 12:00:00 AM EDT Health Sy[facility] m Inc 7 ACTUAT umeclidinium 01/15/2019 [facility] [place] 0.0625 MG/ACTUAT Dry Powder 12:00:00 AM EDT Health System [facility] Inhaler 30 ACTUAT fluticasone 01/15/2019 [facility] [place] furoate 0.2 MG/ACTUAT / 12:00:00 AM EDT H ealth System Inc vilanterol 0.025 MG/ACTUAT Dry Powder Inhaler Cefuroxime 500 MG Oral 07/26/2018 [facility] [place] Tablet 12:00:00 AM EST [facility] Inc Ciprofloxacin 250 MG Oral 05/14/2018 [facility] [place] Tablet 12:00:00 AM EDT [facility] Ondansetron 4 MG Oral 05/04/2018 [facility] [place] Tablet 12:00:00 AM EDT [facility] Ciprofloxacin 250 MG Oral 04/19/2018 [facility] [place] Tablet 12:00:00 AM EDT [facility] Metronidazole 500 MG Oral 04/19/2018 [facility] [place] Tablet 12:00:00 AM EDT [facility] Acyclovir 50 MG/ML Topical 03/26/2018 [facility] [place] Cream 12:00:00 AM EDT [facility] Cyclobenzaprine 02/17/2016 [facility] hydrochloride 5 MG Oral 12:00:00 AM EDT H ealt System Inc Tablet Acyclovir 50 MG/ML Topical 11/19/2015 [facility] [place] Cream 12:00:00 AM EDT Health Syste m Inc BIOFLAV,LEMON/VIT BCOMP&C [place] [facility] [employer] (LIPOFLAVONOID PO) Health [facility] Biotin 2.5 MG Oral Capsule B on Solar[employer] [facility] I nc calcium carbonate 500 mg Bon [facility]Z[employer]ie [place] calcium (1,250 mg) tab 500 [facility] mg, ergocalciferol (vitamin d2) 400 unit tab 200 Units fijbcfri-xft-SJ-lycopen-lut Bon [employer] ein (CENTRUM SILVER) Health System [facility] 0.4-300-250 mg-mcg-mcg tab Losartan Potassium 50 MG Bon [employer] Oral Tablet Health System I nc Cholecalciferol 1000 UNT Bon [employer] Oral Capsule Health System I nc
--- OUTSIDE RECORDS SUMMARY | 2020-04-20 08:35 | XMS ---
:1945 [facility] Providers Name Role Phone Donn Uriostegui Unavailable Unavailable MoodyDonn Unavailable Unavailable Moody Donn Unavailable Unavailable Moody [...] protected by Article 27-F of the [facility] Public Health law. If you continue you may haveaccess to information: Regarding HIV / AIDS; Provided by facilities licensed or operated by the [facility] Office of Mental Health; or Provided by the [facility] Office for People With Developmental Disabilities. If such information is present, then the following [facility] mandated warning applies: This information has been [...] law may result in a fine or care home sentence or both. A general authorization for the release of medical or other information is NOT sufficient authorization for further disclosure. Allergies and Adverse Reactions Type Description Substance Reaction Status Data Source(s ) NO KNOWN ALLERGIES NO KNOWN ALLERGIES NEXTGEN ([facility] ) Drug Class NO KNOWN ALLERGIES NO KNOWN ALLERGIES [place] [facility] Drug allergy Drug allergy Drug allergy MEDENT ( [facility]) Encounters Encounter Providers Location Date Indications Data [...] Healthcare) Outpatient Attender: Jaguar 03/10/2020 11:36:07 AM [facility] - Tim Kc MDAdmitter: EDT - 03/10/2020 [facility] Jaguar Kc MD 11:59:00 PM EDT Patient discharged. Outpatient 02/27/2020 01:30:00 PM EDT - [facility] 02/27/2020 04:10:57 PM EDT System Inc Patient discharged. Outpatient 06/26/2019 12:15:00 PM EST [facility] Outpatient 04/11/2019 08:06:00 AM EDT NEXTGEN ([facility]) Outpatient 04/10/2019 08:24:00 AM EDT NEXTGEN ([facility]) Outpatient 03/28/2019 02:56:54 PM EDT [facility] Outpatient 03/28/2019 12:00:00 PM EDT - [facility] 03/28/2019 04:29:12 PM EDT System Inc Patient discharged. Outpatient 03/26/2019 01:30:00 [facility] PM EDT [facility] Attender: Onel 03/14/2019 03:30:54 [facility] Koyfman DO PM EDT - 03/14/2019 11:59:00 PM EDT Attender: ONEL SungOUTH-XRAY 03/14/2019 11:08:10 [facility] CALEBYFMYVETTE AM EDT Outpatient 03/11/2019 02:15:00 [facility] PM [facility]T [facility] Outpatient Attender: Solomon [facility], 02/15/2019 11:30:00 ROXY goddard AM EDT [facility] Outpatient 01/31/2019 12:42:10 [facility] PM EDT [facility] Outpatient 01/15/2019 01:45:00 [facility] PM EDT [facility] Outpatient 01/15/2019 01:34:05 [facility] PM EDT - 01/15/2019 [facility] 04:39:53 PM EDT System In c Outpatient 01/15/2019 12:00:00 [facility] AM EDT [facility] POB SDS-POB LAB 01/09/2019 12:32:50 [facility] PM EDT 01/09/2019 12:20:00 [facility] PM EDT - 01/09/2019 11:59:00 PM EDT Outpatient 12/21/2018 08:43:49 [facility] AM EDT [facility] 07/26/2018 12:50:00 [facility] PM EST - 07/26/2018 11:59:00 PM EST Immunizations Vaccine Date Status Description Data Source(s) Influenza, high 05/29/2019 completed Influenza High 05/29/2019, [facility] dose seasonal 12:00:00 AM Dose Vaccine PF 05/22/2017, SSN Funding 05/05/2016 [employer] Zoster 05/21/2019 completed Zoster 05/21/2019, [facility] Recombinant 12:00:00 AM Recombinant 03/20/2019 [facility] [employer] [facility] Zoster 03/20/2019 completed Zoster 05/21/2019, [facility] Recombinant 12:00:00 AM Recombinant 03/20/2019 [facility] #[employer] [facility] influenza, 05/04/2018 completed Influenza 05/04/2018 [facility] trivalent, 12:00:00 AM Vaccine (Tri) Ewa rity adjuvanted EDT Adjuvanted [facility] Influenza, high 05/22/2017 completed Influenza High 05/29/2019, [facility] dose seasonal 12:00:00 AM Dose Vaccine PF 05/22/2017, [facility] EST 05/05/2016 [facility] Inc Influenza, high 05/05/2016 completed Influenza High 05/29/2019, [facility] dose seasonal 12:00:00 AM Dose Vaccine PF 05/22/2017, [facility] EDT 05/05/2016 [facility] Inc New in 2012. 04/30/2015 completed Influenza 04/30/2015, [facility] IIV4 12:00:00 AM Vaccine (Quad) 05/13/2014 [facility] Pneumococcal 11/11/2014 completed Pneumococcal 11/11/2014 [place] [facility] conjugate PCV 13 12:00:00 AM Conjugate C harity EDT (PCV-13) [facility] New in 2012. 05/13/2014 completed Influenza 04/30/2015, [facility] IIV4 12:00:00 AM Vaccine (Quad) 05/13/2014 [facility] Medications Medication Brand Start Product Dose Route Administrative Pharmacy [facility] Indications Reaction Description Data Name Date Form [...] [facility] MG/ACTUAT / e-darlin [address] [facility] vilanterol nteroL EDT System Inc 0.025 [...] Oral active Take 5 mL by Bon [id number] in 2018 0 U mouth four [facility] [...] MG/ACTUAT / e-darlin 00 AM daily. [facility] vilanterol nterol EDT System Inc 0.025 (BREO [...] Daily, # 90 tab, 3 Refill(s), Pharmacy: [facility] EPHCY, 50 mg Oral Daily Health - 50 MG Oral mg 03:33: Sigel Tablet oral 00 PM Brothers losartan 50 [...] l cream cream Calcium active MEDENT 1200 ([facility]) BIOTIN 5000 Oral complet Take by Anjana cervantes PO ed mouth. Health Take by mouth. Calcium calcium 600 mg Oral completed Take 60 0 mg [place] Carbonate 1500 carbonate by mo ut 2 [...] 80 mg Oral completed Take 80 mg [place] Oral Tablet (DIOVAN) 80 MG by mouth Health valsartan tablet daily. (DIOVAN) 80 MG tablet Take 80 mg by mouth daily. Multiple Vitamin One-Daily 1 {tbl} Oral completed Take 1 [place] (MULTIVITAMIN) Multi tablet by [facility] tablet Vitamins Po mouth Tabs daily. Take 1 tablet by mouth daily. Losartan Potassium losartan Oral active Take by Remberto 50 MG Oral Tablet (COZAAR) 50 mouth [facility] losartan (COZAAR) mg tablet da la. [facility] 50 mg tablet Health System [employer] BIOFLAV,LEMON/VIT Oral active Take by Remberto BCOMP&C mouth two [facility] (LIPOFLAVONOID PO) (2) ti mes [place] a day. DSI MET-TECH System Inc Cholecalciferol Cholecalcife 2000 U Oral aborted Take Remberto 1000 UNT Oral rol, Vitamin 2,0 00 [facility] Capsule D3, (VITAMIN Units by [facility] Cholecalciferol, D3) 1,000 kaya th Health Vitamin D3, unit cap daily. castaclip Inc (VITAMIN D3) 1,000 unit cap [id number] Oral active T tru by Remberto open-lutein mouth [facility] (CENTRUM SILVER) daily. C harity 0.4-300-250 Health mg-mcg-mcg tab Syste m Inc Biotin 2.5 MG Oral Biotin 2,500 5000 ug Oral active Take Bon Capsule Biotin mcg cap 5,000 m cg [facility] 2,500 mcg cap by mouth Ch arity daily. Immy Inc Vitamins-Lipotropic Oral completed Take by Willam haro (LIPOFLAVONOID mouth. H ealth PO) Take by mouth. calcium carbonate 500 mg Oral active Take by mouth [facility] calcium (1,250 mg) tab da la. Sunglass 500 mg, ergocalciferol Zapstitch (vitamin d2) 400 unit tab 200 Units Multivitamins active MEDE NT ([facility]) Losartan Potassium active MEDENT ([facility]) Insurance Providers Payer name Policy type Policy ID Covered Covered green party's Policy P fantasma / Coverage green party ID relationship to Martínez Inf ormation type martínez PGBA, [id number] SP [id number] LLC/ MEDICARE [id number] SP [id number] [place] [id number] [place] [id number] Self [id number] MCARE [id number] Self [id number] Spouse [id number] MEDICARE [id number] Self [id number] [id number] [place] [id number] Problems, Conditions, and Diagnoses Code Display Name Description Problem Type Effective Data Dates Source(s) R91.1 Lung nodule Lung nodule [id number] 12/22/2016 [facility] 12:00:00 AM [employer] R91.1 Lung nodule Lung nodule Condition 04/27/2016 [facility] 12:00:00 AM EDT N28.1 Renal cyst Renal cyst [id number] 04/15/2016 [facility] 12:00:00 AM [employer] Z85.3 History of breast History of breast [id number] 04/15/2016 [facility] cancer cancer 12:00:00 AM [employer] R05 Cough Cough [id number] 04/01/2016 [facility] 12:00:00 AM [employer] I10 Essential Essential [id number] 11/11/2014 [facility] hypertension hypertension 12:00:00 AM [facility] [employer] Inc R06.00 Dyspnea Dyspnea [id number] 11/11/2014 [facility] 12:00:00 AM [place] [employer] Inc 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 11:27:00 AM [place] [employer] Inc M79.601 Pain in right arm Pain in right arm Diagnosis 03/10/2020 [place] 11:36:00 AM Health - EDT [facility] M79.601 Pain in right arm Pain in right arm Diagnosis 02/27/2020 [facility] 04:10:51 PM [place] [employer] Inc K57.90 Diverticulosis of Diverticulosis of Diagnosis 06/26/2019 [facility] intestine, part intestine, part 12:11:45 PM Ewa rity unspecified, unspecified, EST Health Sys tem without perforation without perforation Inc or abscess without or abscess without bleeding bleeding R05 Cough Cough Diagnosis 03/28/2019 [facility] 12:02:31 PM [place] [employer] Inc R13.12 Dysphagia, Dysphagia, Diagnosis 03/14/2019 [facility] oropharyngeal phase oropharyngeal phase 11:08:1 0 AM EDT R13.10 Dysphagia, Dysphagia, Diagnosis 01/15/2019 [facility] unspecified unspecified 01:34:05 PM [place] [employer] R91.8 Other nonspecific Other nonspecific Diagnosis 01/15/2019 [facility] abnormal finding of abnormal finding of 01:34:0 5 PM [place] lung field lung field [facility] Imm[employer] Inc I10 Essential (primary) Essential (primary) Diagnosis 019 [facility] hypertension hypertension 12:32:50 PM EDT Surgeries/Procedures Procedure Description Date Indications Data Source(s) SCREENING TEST VISUAL 02/15/2019 MEDENT ([facility] 12:00:00 AM EDT [facility]) MANUAL MANUAL Routine 01/09/2019 Hypertension 01/09/2019 Vitamin D [place] DIFFERENTIAL DIFFERENTIAL 12:41 PM Hyperlipidemia 12:41:00 PM deficiencyHyperlipidemiaHyperten [facility] Vitamin D deficiency EDT - 01/09/2019 12:41:00 PM EDT Vitamin D deficiency Hyperlipidemia Hypertension LIPID LIPID Routine 01/09/2019 Hypertension 01/09/2019 Vitamin D [place] PROFILE PROFILE 12:41 PM Hyperlipidemia 12:41:00 PM deficiencyHyperlipidemiaHySnapette WITH WITH EDT Vitamin D deficiency EDT - REFLEX REFLEX 01/09/2019 TO TO 12:41:00 PM DIRECT DIRECT EDT LDL LDL Vitamin D deficiency Hyperlipidemia Hypertension COMPREHENSIVE COMPREHENSIVE Routine 01/09/2019 Hypertension 01/09/2019 Vitamin D [place] METABOLIC METABOLIC 12:41 PM Hyperlipidemia 12:41:00 PM deficiencyHyperlipidemiaHypertCarolina [employer] PANEL PANEL EDT Vitamin D deficiency EDT - 01/09/2019 12:41:00 PM EDT Vitamin D deficiency Hyperlipidemia Hypertension CBC CBC Routine 01/09/2019 Hypertension 01/09/2019 Vitamin D [place] DIFFERENTIAL DIFFERENTIAL 12:41 PM Hyperlipidemia 12:41:00 PM deficiencyHyperlipidemiaHypertCarolina [employer] EDT Vitamin D deficiency EDT - 01/09/2019 12:41:00 PM EDT Vitamin D deficiency Hyperlipidemia Hypertension VITAMIN VITAMIN Routine 01/09/2019 Hypertension 01/09/2019 Vitamin D [place] D 25 D 25 12:41 PM Hyperlipidemia 12:41:00 PM deficiencyHyperlipidemiaHySnapette HYDROXY HYDROXY EDT Vitamin D deficiency EDT - 01/09/2019 12:41:00 PM EDT Vitamin D deficiency Hyperlipidemia Hypertension XR CHEST XR CHEST Routine 07/26/2018 Hemoptysis 07/26/2018 Hemop tysis [place] 2 VIEWS 2 VIEWS 1:05 PM EST 01:05:51 PM Health FRONT PA FRONT PA EST - AND LAT AND LAT 07/26/2018 01:05:51 PM EST Hemoptysis Results ID Date Data Source [id number] 04/16/2020 11:08:00 AM EDT [facility] Name Value Range Interpretation Description Data Sup porting Code Source(s) Document(s ) SARS [facility] coronavirus 2 RNA This lab was ordered by ELSIE downs [facility] and reported by [facility]. ID Date Data Source [id number] 03/10/2020 01:45:00 PM EDT [facility] Patient Name: TAB JINMRN : [id number] General DiagnosticACCESSION EXAM DATE/TIME PROCEDURE ORDERING PROVIDER [id number] 03/10/2020 12:02 EDT XR Humerus 2+ Views Bakari Kc (Verjaz d) RTReason For Exam(XR Humerus 2+ Views [...] right hum erus radiographs.Thank you for allowing [facility] to part icipate in the evaluation of this patient. Final Dictated: Ced cristobal MD, Cass S003/10/20 13:44Signed: Cass Montoya MD 03/10/20 13:45 Transcribed by: JHOANA Name Value Range Interpretation Code Description Data Analisa rce(s) Supporting Document(s ) ID Date Data Source [id number] 03/15/2019 08:40:15 AM EDT [facility] ORIGINAL: MonMar 15, 2019 8:40 AM by [...] study as above. Please refer to the patient care technician speech pathology report for details. Name Value Range Interpretation Code Description Data Analisa rce(s) Supporting Document(s ) ID Date Data Source [id number] 03/14/2019 03:30:54 PM EDT [facility] Name Value Range Interpretation Description Data Sup porting Code Source(s) Document(s ) [facility] [employer] Interface Message Text Modified Barium Swallow Study / Video /29/19 1447 Inpatient/Outpatient Inpatient Ordering Physician Se ignacio Richardson [...] rapidly and speak withfood/liquid in her mouth). IT APPLICATIONS MANAGER prov ied written recommendations fordiet/carryover precautionsDiagnosis/Prognosis - [...] pt/spouse--written precautions providedSignature: Consuelo Verdin, MS, CC C-IT APPLICATIONS MANAGER ID Date Data Source [id number] 02/15/2019 11:48:00 [facility] Name Value Range Interpretation Description Data Sup porting Code Source(s) Document(s ) Laboratory <pending> MEDENT test finding ([facility]) ID Date Data Source [id number] 01/09/2019 02:27:00 PM EDT [facility] Name Value Range Interpretation Description Data Sup porting Code Source(s) Document(s ) VITAMIN D 40.3 30.0-100. [facility] ng/mL 0 ID Date Data Source [id number] 01/09/2019 02:06:00 PM EDT [facility] Name Value Range Interpretation Description Data Sup porting Code Source(s) Document(s ) NEUTROPHILS - 42 % 36-66 [place] MAN (DIFF) Health LYMPHOCYTES - 49 % 24-44 Above high normal [place] MAN (DIFF) Health MONOCYTES - MAN 4 % 3-7 [place] (DIFF) Health EOSINOPHILS - 2 % 0-5 [place] MAN (DIFF) Health BASOPHILS - MAN 1 % 0-1 [place] (DIFF) Health ATYPICAL 2 % [place] LYMPHOCYTE - Health MAN (DIFF) TOTAL COUNTED 100 [facility] ANC MAN DIFF 3444 1,500-8, [place] Cells/mm 000 Health 3 ANISOCYTOSIS 1+ [facility] ID Date Data Source [id number] 01/09/2019 02:05:00 PM EDT [facility] Name Value Range Interpretation Description Data Sup porting Code Source(s) Document(s ) TRIGLYCERIDES 73 mg/dL <=150 [facility] CHOLESTEROL 162 <=200 [place] mg/dL [facility] LDL CHOLESTEROL 74 mg/dL 0-160 [place] CALCULATED [facility] HDL CHOLESTEROL 73 mg/dL >=60 [facility] ID Date Data Source [id number] 01/09/2019 02:05:00 PM EDT [facility] Name Value Range Interpretation Description Data Sup porting Code Source(s) Document(s ) SODIUM 140 136-144 [place] mEq/L [facility] POTASSIUM 4.2 3.5-5.1 [place] mEq/L [facility] CHLORIDE 105 101-111 [place] mEq/L [facility] CO2 28 mEq/L 22-32 [facility] BLOOD UREA 14 mg/dL 8-20 [place] NITROGEN [facility] GLUCOSE 77 mg/dL 70-110 [facility] CALCIUM 9.5 8.5-10.1 [place] mg/dL [facility] CREATININE 0.73 0.55-1.0 [place] mg/dL 2 Health BILIRUBIN 0.8 0.3-1.2 [place] TOTAL mg/dL [facility] ALBUMIN 4.1 g/dL 3.5-4.8 [facility] TOTAL PROTEIN 6.9 g/dL 6.4-8.3 [facility] ALKALINE 69 U/L 45-117 [place] PHOSPHATASE [facility] AST (SGOT) 30 U/L 15-41 [facility] ALT (SGPT) 21 U/L 14-54 [facility] ANION GAP 7 mEq/L 8-17 Below low normal [facility] EGFR >=60.0 [facility] EGFR NON >=60.0 [facility] BOLIVIAN ID Date Data Source [id number] 01/09/2019 01:58:00 PM EDT [facility] Name Value Range Interpretation Description Data Sup porting Code Source(s) Document(s ) WBC 8.2 3.9-10.7 [facility] 10^3/L Health RBC 5.33 4.00-5.1 Above high normal [facility] 10^6/L 0 Health HEMOGLOBIN 16.0 12.0-14. Above high normal [place] g/dL 7 Health HEMATOCRIT 48.6 % 37.1-45. Above high normal [facility] 4 Health MCV 91.2 fL 81.9-99. [facility] 9 Health MCH 30.0 pg 26.2-32. [place] 7 Health MCHC 32.9 30.9-33. [place] g/dL 8 Health RDW 12.4 % 11.5-15. [facility] 0 Health PLATELET COUNT 117 126-373 Below low normal [facility] 10^3/L Health ID Date Data Source [id number] 07/26/2018 01:11:27 PM EST [facility] ORIGINAL: Ruth Jul 26, 2018 1:11 PM by Barrington Dejesus [...] [facility] 12:00:00 AM of alcohol of alcohol [employer] EDT (finding) (finding) [facility] Inc Tobacco use and 04/02/2020 Never used completed Never used [facility] exposure 12:00:00 AM [employer] System Inc Cigarette 04/02/2020 UNK completed [facility] pack-years 12:00:00 AM [employer]o [employer]T [facility] Inc Cigarettes 04/02/2020 UNK completed [facility] smoked current 12:00:00 AM [facility] (pack per day) - EDT System I nc Reported Smoking 04/02/2020 Former smoker completed Former smoker [facility] 12:00:00 AM [employer]T System Inc Alcohol intake 06/26/2019 Current drinker completed Current drinker [facility] 12:00:00 AM of alcohol of alcohol [employer] EST (finding) (finding) [facility] Inc Cigarette 06/26/2019 UNK completed [facility] pack-years 12:00:00 AM Fluoresentric System Inc Cigarettes 06/26/2019 UNK completed [facility] smoked current 12:00:00 AM [facility] (pack per day) - EST System I nc Reported Smoking 06/26/2019 Former smoker completed Former smoker [facility] 12:00:00 AM [employer]ric [facility] Inc Cigarette 01/15/2019 UNK completed [facility] pack-years 12:00:00 AM Bolt System Inc Cigarettes 01/15/2019 UNK completed [facility] smoked current 12:00:00 AM [facility] ealtZinc software (pack per day) - EDT System I nc Reported Smoking 01/15/2019 Former smoker completed Former smoker [facility] 12:00:00 AM Bolt System Inc Cigarette 07/26/2018 UNK completed [facility] pack-years 12:00:00 AM Fluoresentric System Inc Cigarettes 07/26/2018 UNK completed [facility] smoked current 12:00:00 AM [employer] [facility] (pack per day) - EST System I nc Reported Smoking 07/26/2018 Former smoker completed Former smoker [facility] 12:00:00 AM [employer] System Inc Cigarette 07/18/2018 UNK completed [facility] pack-years 12:00:00 AM [employer] System Inc Cigarettes 07/18/2018 UNK completed [facility] smoked current 12:00:00 AM [employer] [facility] (pack per day) - EST System I nc Reported Smoking 07/18/2018 Former smoker completed Former smoker [facility] 12:00:00 AM Fluoresentric System Inc Tobacco smoking 04/27/2016 Former smoker [facility] 12:00:00 AM EDT 11/11/1984 Cigarette completed Cigarette Smoker [facility] 12:00:00 AM Smoker [employer] EST System Inc 11/11/1984 Current smoker completed Current smoker [facility] 12:00:00 AM Fluoresentric System Inc Smoking completed [facility] 11/11/1984 Cigarette completed Cigarette Smoker [facility] 12:00:00 AM Smoker [facility] [employer] 11/11/1984 Current smoker completed Current smoker [facility] 12:00:00 AM [place] [facility] Sex assigned at Not on file Not on file [facility] Recreational Drug Denies Drug Use completed Denies Drug U se MEDENT Use ([facility]) Patient is a completed Patient is a MEDENT former smoker former smoker ([facility]) Alcohol intake Yes completed [facility] [employer] 11/11/1984 Cigarette completed Cigarette [facility] 12:00:00 Smoker Smoker [email or web address] 11/11/1984 Current smoker completed Current smoker [facility] 12:00:00 [employer] Sex assigned at Not on file Not on file [facility] 11/11/1984 12:00:00 Cigarette Smoker completed Cigarette Smoker [facility] AM EST [employer] 11/11/1984 12:00:00 Current smoker completed Current smok er [facility] AM EST [employer] [facility] 11/11/1984 12:00:00 Cigarette Smoker completed Cigarette Smoker [facility] AM EST [employer] 11/11/1984 12:00:00 Current smoker completed Current smok er [facility] AM EST [employer] Sex assigned at Not on file Not on file [facility] Vital Signs ID Date Data Source UNK Name Value Range Interpretation Code Description Data Source(s) Oxygen saturation 97 % 97 % [facility] in Arterial blood [employer]ulse [employer] System Inc Body mass index 21.80 kg/m2 21.80 kg/m2 [facility] (BMI) [Ratio] [facility] Body weight 57.607 kg 57.607 kg Bon [facility] [employer] Body height 162.6 cm 162.6 cm Bon [employer] Body temperature 36.33 Bertha 36.33 Bertha [facility] [employer] Heart rate 71 /min 71 /min Bon [employer] Diastolic blood 72 mm[Hg] 72 mm[Hg] [facility] pressure [employer] Systolic blood 124 mm[Hg] 124 mm[Hg] [facility] pressure [employer]ie[employer]ostable Oxygen saturation 98 % 98 % [facility] in Arterial blood [employer] by Pulse oxim[employer] System Inc Body mass index 20.77 kg/m2 20.77 kg/m2 [facility] (BMI) [Ratio] [place] [facility] System Inc Body weight 54.885 kg 54.885 kg [facility] [employer] Body height 162.6 cm 162.6 cm [facility] [employer] Heart rate 62 /min 62 /min [facility] [employer] Diastolic blood 62 mm[Hg] 62 mm[Hg] [facility] pressure [employer] Systolic blood 118 mm[Hg] 118 mm[Hg] [facility] pressure [employer] Inc Body mass index 21.1 kg/m2 21.1 kg/m2 MEDENT (BMI) [Ratio] ([facility]) Body weight 55.793 kg 55.793 kg MEDENT ([facility]) Body weight 123.00 123.00 [lb_av] MEDENT [lb_av] ([facility]) Body height 64 [in_i] 64 [in_i] MEDENT ([facility]) 5'4" Respiratory rate 13 /min 13 /min MEDENT ( [facility] ) Heart rate 71 /min 71 /min MEDENT ([facility] ) Oxygen saturation in Arterial 96 % 96 % MEDENT ([facility] blood by Pulse oximetry [facility]) Body temperature 98.2 [degF] 98.2 [degF] MEDENT ([facility] ) Diastolic blood pressure 78 mm[Hg] 78 mm[Hg] [facility] ([facility] ) Systolic blood pressure 130 mm[Hg] 130 mm[Hg] [facility] ([facility] ) Oxygen saturation in Arterial 96 % 96 % [facility] Rebit blood by Pulse oximetry S [employer] Body mass index (BMI) [Ratio] 21.90 kg/m2 21.90 kg/m2 [facility] [employer] [facility] Body weight 57.879 kg 57.879 kg [facility] [employer] Body height 162.6 cm 162.6 cm [facility] [employer] Heart rate 71 /min 71 /min [facility] [employer] Diastolic blood pressure 72 mm[Hg] 72 mm[Hg] [facility] [employer] Systolic blood pressure 116 mm[Hg] 116 mm[Hg] B on [employer] Oxygen saturation in Arterial 95 % 95 % Bon [facility] blood by Pulse oximetry S [employer] Body mass index (BMI) [Ratio] 21.68 kg/m2 21.68 kg/m2 [facility] [employer] Body weight Measured 57.289 kg 57.289 kg Bon [employer] Body height 162.6 cm 162.[address] [employer] [facility] Heart rate 85 /min 85 /min Bon [employer] Diastolic blood pressure 70 mm[Hg] 70 mm[Hg] Bon [employer] Systolic blood pressure 126 mm[Hg] 126 mm[Hg] B on [employer] Oxygen saturation in Arterial 98 % 98 % Bon [facility] blood by Pulse oximetry S [employer] Respiratory rate 12 /min 12 /min [facility] [employer] Heart rate 72 /min 72 /min Bon [employer] Diastolic blood pressure 78 mm[Hg] 78 mm[Hg] Bon [employer] Systolic blood pressure 122 mm[Hg] 122 mm[Hg] B on [employer] Patient Treatment Plan of Care Planned Activity Planned Date Details Description Data Source (s) No data available for this N [facility] Losartan Potassium 50 MG 03/26/2020 [facility] [place] Oral Tablet 12:00:00 AM EDT [facility] 60 ACTUAT Fluticasone 11/08/2019 [facility] [place] propionate 0.25 MG/ACTUAT / 12:00:00 AM EDT [facility] [employer] [facility] salmeterol 0.05 MG/ACTUAT Dry Powder Inhaler [Advair] umeclidinium 0.0625 11/04/2019 [facility] [place] MG/ACTUAT Dry Powder 12:00:00 AM EDT [facility] Inhaler 30 ACTUAT fluticasone 11/04/2019 [facility] [place] furoate 0.2 MG/ACTUAT / 12:00:00 AM EDT [facility] vilanterol 0.025 MG/ACTUAT Dry Powder [...] AM EST [facility] Nystatin 003703 UNT/ML Oral 06/19/2019 [facility] [place] Suspension [...] Health - Oral Tablet 03:33:00 PM EDT [facility] Prednisone 20 MG Oral 01/15/2019 Bon Se [...] [facility] [place] Cream 12:00:00 AM ED [facility] Cyclobenzaprine 02/17/2016 [facility] [place] hydrochloride 5 MG Oral 12:00:00 AM EDT H [facility] Tablet Acyclovir 50 MG/ML Topical 11/19/2015 [facility] [place] Cream 12:00:00 AM ED [facility] BIOFLAV,LEMON/VIT [facility] (LIPOFLAVON[facility] PO) [facility] Biotin 2.5 MG Oral Capsule [facility] [place] [facility] calcium carbonate 500 mg Bon [facility] calcium (1,250 mg) tab [facility] mg, ergocalciferol (vitamin d2) 400 unit tab 200 Units [id number]-JV-lycopen-lut Bon [facility] ein (CENTRUM SILVER) [facility] 0.4-300-250 mg-mcg-mcg tab Losartan Potassium 50 MG Bon [facility] Oral Tablet [facility] Cholecalciferol 1000 UNT Bon [facility] Oral Capsule [facility]
[2020-04-20 08:51] VITALS: TEMP 97.6
[2020-04-20] MEDS ORDERED: PROPOFOL 20 ML ONE ×2 (09:34)
[2020-04-20] MEDS ORDERED: LIDOCAINE HCL/PF 2% SDV 5ML VIAL ONE (09:34)
[2020-04-20 11:17] VITALS: BP 118/64; PULSE 74
--- NOTE | 2020-04-23 13:22 | PATH ---
Surgical Pathology Report Patient Name: TAB JIN Med. Rec. #: [id number] /Age/Gender: 1945 (Age: 74) / F Account: [id number] [facility] Taken: 04/20/2020 Received: 04/20/2020 Reported: 04/23/2020 Physicians: Gavin Simeon M.D. Specimen(s) Received HOT SNARE POLYPECTOMY PROXIMAL RIGHT COLON Clinical History History of diverticulitis, family history of colon cancer Postoperative diagnosis: Diverticulosis, colon polyp Final Diagnosis PROXIMAL RIGHT COLON, POLYP, HOT SNARE POLYPECTOMY: SESSILE SERRATED POLYP. Electronically Signed Lavonne Butterfield M.D. Gross Description Received in formalin, labeled "hot snare polypectomy proximal right colon" is a gallardo, polypoid portion of soft tissue measuring 0.4 cm. in greatest dimension. The specimen is submitted in toto in one cassette. /04/21/2020 saudi/04/21/2020
== END 2020-04-20 11:19 | disposition home or self-care (01) ==
LOC: FASU 08:30
PROVIDERS: ATTEND Internal Medicine Gastroenterology
PROC: 0DBK8ZX Excision of Ascending Colon, Via Natural or Artificial Opening Endoscopic, Diagnostic (ICD-10-PCS; principal; 2020-04-20 10:06)
DX: Z12.11 Encounter for screening for malignant neoplasm of colon (principal); D12.2 Benign neoplasm of ascending colon; K57.30 Diverticulosis of large intestine without perforation or abscess without bleeding
CPT/HCPCS: 88305-TC